=== PATIENT | female | born 1995 | race Two or more races ===

== ENCOUNTER 2025-03-17 12:22 | Emergency (ER) | payer OTHER ==
[~2025-03-17] VITALS: Ht 162.6 cm; Wt 59.0 kg
[2025-03-17] MEDS ORDERED: 0.9 % SODIUM CHLORIDE 1,000 ML IV SCH (13:15)
[2025-03-17] MEDS ORDERED: MECLIZINE HCL 25 MG TABLET PO ONE (13:15)
[2025-03-17] MEDS ORDERED: ACETAMINOPHEN 500 MG GEL..CAP PO ONE (13:15)
[2025-03-17] MEDS ORDERED: FAMOtidine 10 MG/ML (4ML VIAL) IV PUSH ONE (13:15)
[2025-03-17 13:55] LABS: BASO % 0.3 % (0.1-1.2); EOS # 0.16 (0.04-0.54); EOS % 2.7 % (0.7-7.0); LYMPH # 2.10 (1.18-3.74); LYMPH % 34.9 % (19.3-53.1); MEAN PLATELET VOLUME 8.80 fl (9.4-12.4); MONO # 0.36 (0.24-0.82); MONO % 6.0 % (4.7-12.5); NEUT # 3.37 (1.56-6.13); NEUT % 55.9 % (34.0-71.1); RED CELL DISTRIBUTION WIDTH 11.7 % (11.6-14.4)
[2025-03-17 14:23] LABS: INR 1.03
[2025-03-17 15:10] LABS: URINE APPEARANCE Clear; URINE BILIRRUBIN Negative (NEGATIVE); URINE BLOOD Negative; URINE COLOR Yellow; URINE GLUCOSE Negative (NEGATIVE); URINE KETONE Negative (NEGATIVE); URINE LEUKOCYTE Negative; URINE NITRATE Negative; URINE PROTEIN Negative (NEGATIVE); URINE UROBILINOGEN 0.2 E.U./dl
[2025-03-17 15:14] LABS: URINE BACTERIA 234.9 uL (0.0-1933); URINE EPITHELIAL CELLS 3.9 uL (0.0-38.8); URINE RBC 6.0 uL (0.0-20.8); URINE WBC 2.1 uL (0.0-23.2)
[2025-03-17 15:20] LABS: URINE CAST 0.00 uL (0.0-1.40)
[2025-03-17 15:24] LABS: ALT/SGPT 55 U/L (12-78); AST/SGOT 38 U/L (15-37); BILIRUBIN TOTAL 0.46 mg/dL (0.3-1.2); BUN CREA RATIO 28 (7.0-25.0); CREATININE SERUM 0.36 mg/dL (0.55-1.02); GFR 208.89; GLOBULINA 3.3 G/DL (2.4-3.5); GLUCOSE FASTING 102 mg/dL (65-100); OSMOLALITY SERUM 277 MOSM/KG (275-295); PHOSPHOKINASE CREATININE 32 U/L (26-192)
[2025-03-17 15:31] LABS: HCG QUANTITATIVE < 1 mUI/mL (1-3)
[2025-03-17] MEDS ORDERED: ZOFRAN8 MG PO (20:18)
[2025-03-17] MEDS ORDERED: DRAMAMINE25 M1 PO (20:18)
== END 2025-03-17 20:53 | disposition home or self-care (01) ==
LOC: ER 12:22
PROVIDERS: General Practice
DX: R42 Dizziness and giddiness (principal); V89.2XXA Person injured in unspecified motor-vehicle accident, traffic, initial encounter; R51.9 Headache, unspecified; E03.8 Other specified hypothyroidism